=== PATIENT | female | born 1990 | race African-American/Black ===

== ENCOUNTER 2021-11-18 12:58 | Emergency (ER) | payer BC, MEDICAID ==
[~2021-11-18] VITALS: Ht 157.5 cm; Wt 66.0 kg
[2021-11-18 13:08] VITALS: BP 169/90
[2021-11-18] MEDS ORDERED: KETOROLAC 30MG/ML VIAL IM ONE (14:00)
[2021-11-18] MEDS ORDERED: DEXAMETHASONE 10 MG/ML VIAL PO ONE (14:00)
[2021-11-18] MEDS ORDERED: PENI500T MT (15:05)
[2021-11-18] MEDS ORDERED: ACETAMINOPHEN 325MG TABLET PO ONE (15:15)
== END 2021-11-18 15:19 | disposition home or self-care (01) ==
LOC: ER 12:58
DX: J02.9 Acute pharyngitis, unspecified (principal)
CPT/HCPCS: 87070; 87430; 96372; 99283; J1100; J1885